=== PATIENT | female | born 1955 | race Caucasian/White ===

== ENCOUNTER → 2017-12-28 | Outpatient (CLI) | payer SELFPAY ==
[~2017-12-28] MED LIST: CARDI-OMEGA1000 MG PO; MOTRIN100 M1 PO; MULTIPLE VITAMI1 CAP PO; OMEPRAZOLE20 MG PO; SIMVASTATIN40 MG PO; ZESTORETIC 12.51 TA1 PO
== END ==
LOC: MC.RAD 09:56
DX: Z12.31 Encounter for screening mammogram for malignant neoplasm of breast (principal)